=== PATIENT | male | born 1985 | race Hispanic/Latino ===

== ENCOUNTER 2022-05-08 15:20 | Emergency (ER) | payer OTHER ==
[2022-05-08] MEDS ORDERED: Boostrix 0.5 ML (Tdap) VIAL (>/=7 yrs of age) ONE (16:07)
[2022-05-08] MEDS ORDERED: Tranexamic Acid 1,000 MG/10 ML VIAL ONE (16:40)
[2022-05-08] MEDS ORDERED: Triple Antibiotic Oint 1 GM Packet ONE (16:41)
== END 2022-05-08 17:20 | disposition home or self-care (01) ==
LOC: CSHERS 15:20
DX: S60.312A Abrasion of left thumb, initial encounter (principal); X58.XXXA Exposure to other specified factors, initial encounter
CPT/HCPCS: 90471; 90715; 99283